=== PATIENT | female | born 2005 | race African-American/Black ===

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

== ENCOUNTER 2024-07-08 22:41 | Emergency (ER) | payer BC, OTHER ==
[2024-07-08 22:54] VITALS: BP 102/64; PULSE 79; RESP 18; TEMP 97.4; BMI 24.9
[2024-07-08] MEDS ORDERED: ACETAMINOPHEN 500 MG TABLET (FP) ONE (23:43)
[2024-07-08] MEDS: ACETAMINOPHEN 500 MG TABLET (FP) PO ONE (23:46)
== END 2024-07-08 23:50 | disposition home or self-care (01) ==
LOC: JER 22:41
DX: R51.9 Headache, unspecified (principal); T59.891A Toxic effect of other specified gases, fumes and vapors, accidental (unintentional), initial encounter; X14.0XXA Inhalation of hot air and gases, initial encounter
CPT/HCPCS: 99283-25